=== PATIENT | female | born 1980 | race Caucasian/White ===

== ENCOUNTER 2018-05-29 13:42 | Emergency (ER) | payer OTHER ==
[2018-05-29] MEDS: DIAZEPAM 5 MG/ML SYG IM (14:39)
[2018-05-29] MEDS: HYDROCODONE/APAP (5/325) TAB PO (15:20)
[2018-05-29] MEDS: ONDANSETRON (ODT) 4 MG TAB ODT (15:20)
== END 2018-05-29 16:30 | disposition home or self-care (01) ==
LOC: FTE 13:42
DX: M62.830 Muscle spasm of back (principal)
CPT/HCPCS: 72100; 81025; 96372; 99284-25